=== PATIENT | female | born 1995 | race African-American/Black ===

== ENCOUNTER 2017-09-16 06:14 | Emergency (ER) | payer SELFPAY ==
[2017-09-16 06:37] LABS: URINE HCG POC HCG NEGATIVE (Negative)
[2017-09-16 06:40] LABS: BILIRUBIN,URINE SMALL (NEG); CLARITY,URINE CLEAR; COLOR,URINE AMBER; GLUCOSE,URINE NEGATIVE (NEG); NITRITE,URINE NEGATIVE (NEG); PROTEIN,URINE 30 mg/dL (NEG-TRACE)
[2017-09-16 06:50] LABS: ADD MAN DIFF? NO; BACTERIA,URINE FEW /HPF (0-FEW); RBC,URINE 0 /HPF (0-2); SQUAMOUS EPITHELIAL CELL,UR MOD /LPF
[2017-09-16 06:52] LABS: BASO % 1 % (0-3); EOS % 1 % (0-3); HEMOGLOBIN 13.7 g/dL (12.0-15.5); LYMPH # 0.9 x10^3/uL (1.0-4.8); LYMPH % 14 % (24-48); MEAN CORPUSCULAR HEMOGLOBIN 30 pg (25-35); MEAN CORPUSCULAR HGB CONC 34 g/dL (31-37); MEAN CORPUSCULAR VOLUME 88 fL (79-100); MONO # 0.4 x10^3/uL (0.0-1.1); MONO % 6 % (0-9); NEUT # 5.4 x10^3uL (1.8-7.7); NEUT % 79 % (31-73); PLATELET COUNT 301 x10^3/uL (140-400); RED BLOOD COUNT 4.57 x10^6/uL (3.50-5.40); RED CELL DISTRIBUTION WIDTH 12.4 % (11.5-14.5); WHITE BLOOD COUNT 6.8 x10^3/uL (4.0-11.0)
[2017-09-16 07:07] LABS: ANION GAP 14 (6-14); BLOOD UREA NITROGEN 15 mg/dL (7-20); BUN/CREATININE RATIO 15 (6-20); CALCIUM 10.3 mg/dL (8.5-10.1); CARBON DIOXIDE 23 mmol/L (21-32); CHLORIDE 102 mmol/L (98-107); GFR 85.5; GLUCOSE 117 mg/dL (70-99); POTASSIUM 3.3 mmol/L (3.5-5.1); SODIUM 139 mmol/L (136-145)
[2017-09-16 07:12] LABS: ALBUMIN/GLOBULIN RATIO 1.3 (1.0-1.7); ALK PHOS 69 U/L (46-116); ALT (SGPT) 23 U/L (14-59); AST (SGOT) 17 U/L (15-37); TOTAL BILIRUBIN 0.9 mg/dL (0.2-1.0); TOTAL PROTEIN 8.9 g/dL (6.4-8.2)
[2017-09-16] MEDS: ONDANSETRON ODT 4 MG TAB.RAPDIS. PO (07:19)
[2017-09-16] MEDS: IV NORMAL SALINE 1000ML BAG 1,000 ML IV (07:19)
[2017-09-16] MEDS: KETOROLAC 30 MG/ML INJ. IV (07:19)
== END 2017-09-16 07:50 | disposition home or self-care (01) ==
LOC: ER 06:14
DX: R11.2 Nausea with vomiting, unspecified (principal); R10.2 Pelvic and perineal pain
CPT/HCPCS: 36415; 80053; 81001; 81025; 85025; 96361; 96374; 99284; J1885; J7030; Q0162

== ENCOUNTER 2017-09-20 08:32 | Emergency (ER) | payer SELFPAY ==
[2017-09-20 08:52] LABS: URINE HCG POC HCG NEGATIVE (Negative)
[2017-09-20] MEDS: IOHEXOL 300 MG/ML 100ML VIAL. IV (09:00)
[2017-09-20] MEDS ORDERED: CONTRAST GIVEN. MC (09:00)
[2017-09-20] MEDS: IV NORMAL SALINE 1000ML BAG 1,000 ML IV (09:10)
[2017-09-20] MEDS: ONDANSETRON PF 4 MG/2 ML VIAL. IV (09:12)
[2017-09-20] MEDS: fentaNYL PF VIAL 100 MCG/2 ML VIAL IV (09:12)
[2017-09-20 09:14] LABS: ADD MAN DIFF? NO
[2017-09-20 09:32] LABS: ALBUMIN 4.7 g/dL (3.4-5.0); ALBUMIN/GLOBULIN RATIO 1.2 (1.0-1.7); ALK PHOS 76 U/L (46-116); ALT (SGPT) 36 U/L (14-59); ANION GAP 15 (6-14); AST (SGOT) 18 U/L (15-37); BLOOD UREA NITROGEN 15 mg/dL (7-20); BUN/CREATININE RATIO 15 (6-20); CALCIUM 9.9 mg/dL (8.5-10.1); CARBON DIOXIDE 25 mmol/L (21-32); CHLORIDE 96 mmol/L (98-107); CREATINE KINASE 63 U/L (26-192); DIRECT BILIRUBIN 0.4 mg/dL (0.0-0.2); GFR 85.5; GLUCOSE 91 mg/dL (70-99); LIPASE 99 U/L (73-393); SODIUM 136 mmol/L (136-145); TOTAL BILIRUBIN 1.4 mg/dL (0.2-1.0); TOTAL PROTEIN 8.6 g/dL (6.4-8.2)
[2017-09-20 09:36] LABS: TROPONINI < 0.017 ng/mL (0.000-0.055)
[2017-09-20 09:36] LABS: AMPHETAMINE/METHAMPHETAMINE NEG (NEG); BARBITURATES NEG (NEG); BENZODIAZEPINES NEG (NEG); CANNABINOIDS POS (NEG); COCAINE NEG (NEG); ETHANOL, URINE NEG (NEG); METHADONE NEG (NEG); OPIATES NEG (NEG); PHENCYCLIDINE NEG (NEG)
[2017-09-20 09:38] LABS: BACTERIA,URINE 0 /HPF (0-FEW); BILIRUBIN,URINE SMALL (NEG); CLARITY,URINE CLOUDY; COLOR,URINE AMBER; GLUCOSE,URINE NEGATIVE (NEG); NITRITE,URINE NEGATIVE (NEG); PH,URINE 6.5; PROTEIN,URINE 30 mg/dL (NEG-TRACE); RBC,URINE 0 /HPF (0-2); SQUAMOUS EPITHELIAL CELL,UR MANY /LPF; WBC,URINE 0 /HPF (0-4)
[2017-09-20 10:31] LABS: BASO # 0.1 x10^3/uL (0.0-0.2); BASO % 1 % (0-3); EOS # 0.2 x10^3/uL (0.0-0.7); EOS % 2 % (0-3); HEMATOCRIT 42.6 % (36.0-47.0); HEMOGLOBIN 14.8 g/dL (12.0-15.5); LYMPH % 26 % (24-48); MEAN CORPUSCULAR HEMOGLOBIN 30 pg (25-35); MEAN CORPUSCULAR HGB CONC 35 g/dL (31-37); MEAN CORPUSCULAR VOLUME 87 fL (79-100); MONO # 0.6 x10^3/uL (0.0-1.1); MONO % 8 % (0-9); NEUT # 4.8 x10^3uL (1.8-7.7); NEUT % 63 % (31-73); PLATELET COUNT 364 x10^3/uL (140-400); RED BLOOD COUNT 4.92 x10^6/uL (3.50-5.40); WHITE BLOOD COUNT 7.6 x10^3/uL (4.0-11.0)
[2017-09-20] MEDS: POTASSIUM CHLORIDE 20 MEQ TABLET.ER. PO (10:50)
== END 2017-09-20 12:12 | disposition home or self-care (01) ==
LOC: ER 12:12
DX: R10.30 Lower abdominal pain, unspecified (principal); R11.2 Nausea with vomiting, unspecified; R07.89 Other chest pain
CPT/HCPCS: 36415; 71046; 74177; 80053; 80076; 80307; 81001; 81025; 82550; 83690; 84484; 85025; 93005; 96361; 96374; 96375; 99285-25; J2405; J3010; J7030; Q9967

== ENCOUNTER 2017-10-19 13:00 | Emergency (ER) | payer SELFPAY ==
[~2017-10-19] VITALS: Ht 167.6 cm; Wt 72.6 kg
[~2017-10-19 13:00] MED LIST: ONDA4TAB10 PO; ONDA4TAB10 SL; TRAM-48 PO
[2017-10-19] MEDS ORDERED: IV NORMAL SALINE 1000ML BAG 1,000 ML IV ONE (13:45)
[2017-10-19] MEDS ORDERED: ONDANSETRON PF 4 MG/2 ML VIAL. IV ONE (13:45)
[2017-10-19 13:57] LABS: BASO % 0 % (0-3); EOS % 0 % (0-3); HEMATOCRIT 41.1 % (36.0-47.0); HEMOGLOBIN 13.8 g/dL (12.0-15.5); LYMPH % 14 % (24-48); MEAN CORPUSCULAR HEMOGLOBIN 29 pg (25-35); MEAN CORPUSCULAR HGB CONC 34 g/dL (31-37); MEAN CORPUSCULAR VOLUME 87 fL (79-100); MONO # 0.6 x10^3/uL (0.0-1.1); MONO % 8 % (0-9); NEUT # 5.8 x10^3uL (1.8-7.7); NEUT % 78 % (31-73); PLATELET COUNT 396 x10^3/uL (140-400); RED BLOOD COUNT 4.71 x10^6/uL (3.50-5.40); RED CELL DISTRIBUTION WIDTH 12.2 % (11.5-14.5); WHITE BLOOD COUNT 7.5 x10^3/uL (4.0-11.0)
--- NOTE | 2017-10-19 14:00 | PHYS DOC ---
Past Medical History Past Medical History: No Pertinent History Past Surgical History: No Surgical History Alcohol Use: Occasionally Drug Use: None Adult General Chief Complaint Chief Complaint: ABDOMINAL PAIN HPI HPI Patient is a 21 year old -[place] female who presents to the emergency room today with complaints of lower abdominal cramping and constipation following her last menstrual period which was October 15, 2017 through September. Patient also complains of tenderness in her chest and a sharp pain in her chest with deep breaths. She states that her last bowel movement was approximately 4 days ago. Currently, she reports her pain as 8 out of 10 on the pain scale. She states that nothing has helped to make her pain better or worse. Patient states she is not currently active sexually. She has had 5 episodes of nausea and vomiting over the last 24 hours. She denies any fever, urinary frequency, hematuria, irregular vaginal discharge, dysuria, or diarrhea. Review of Systems Review of Systems Constitutional: Denies fever or chills [] HENT: Denies nasal congestion or sore throat [] Respiratory: Denies cough reports intermittent shortness of breath with episodes of chest pain[] Cardiovascular: Reports substernal chest pain that increases with palpation and deep breathing GI: Denies bloody stools or diarrhea ; reports lower abdominal pain and 5 episodes of nausea/ vomiting in the last 24 hours. : Denies increased urinary frequency, dysuria or hematuria; denies regular vaginal discharge.[] Musculoskeletal: Denies back pain or joint pain [] Integument: Denies rash or skin lesions [] Neurologic: Denies headache, focal weakness or sensory changes [] Current Medications Current Medications Current Medications Medications (Trade) Dose Ordered Sig/Michael Start Time Stop Time Status Last Admin Dose Admin Azithromycin (Zithromax) 1,000 mg 1X ONCE 10/19/17 16:00 10/19/17 16:01 DC 10/19/17 16:00 1,000 MG Ceftriaxone Sodium (Rocephin Im) 250 mg STK-MED ONCE 10/19/17 15:56 10/19/17 15:57 DC Ketorolac Tromethamine (Toradol 15mg Vial) 15 mg 1X ONCE 10/19/17 14:45 10/19/17 14:54 DC 10/19/17 15:15 15 MG Morphine Sulfate (Morphine Sulfate) 4 mg 1X ONCE 10/19/17 14:15 10/19/17 14:17 DC 10/19/17 15:15 4 MG Ondansetron HCl (Zofran) 4 mg 1X ONCE 10/19/17 13:45 10/19/17 13:46 DC 10/19/17 13:40 4 MG Potassium Chloride (Klor-Con) 60 meq 1X ONCE 10/19/17 14:45 10/19/17 14:54 DC 10/19/17 15:28 60 MEQ Sodium Chloride 1,000 ml @ 1,000 mls/hr 1X ONCE 10/19/17 13:45 10/19/17 14:44 DC 10/19/17 13:40 1,000 MLS/HR Allergies Allergies Allergies Coded Allergies Type Severity Reaction Last Updated Verified No Known Drug Allergies 09/16/17 No Physical Exam Physical Exam Constitutional: Well developed, well nourished, no acute distress, non-toxic appearance. [] HENT: Normocephalic, atraumatic, bilateral external ears normal, oropharynx moist, no oral exudates, nose normal. [] Eyes: PERRLA, conjunctiva normal, no discharge. [] Cardiovascular:Heart rate regular rhythm, no murmur [] Lungs & Thorax: Bilateral breath sounds clear to auscultation; patient reports tenderness to palpation of chest wall[] Abdomen: Bowel sounds normal, soft, no masses, no pulsatile masses; bilateral lower abdominal tenderness to palpation Pelvic Exam: Farm Assistant present RN External Genitalia: Normal Skin Speculum: Normal vaginal mucosa, white vaginal discharge present, normal cervical discharge Bimanual: No adnexal masses, L adnexal tenderness, CMT Skin: Warm, dry, no erythema, no rash. [] Extremities: no cyanosis, ROM intact, no edema. [] Neurologic: Alert and oriented X 3, normal motor function, normal sensory function, no focal deficits noted. [] Psychologic: Affect normal, judgement normal, mood normal. [] Current Patient Data Vital Signs Vital Signs Date Time Temp Pulse Resp B/P (MAP) Pulse Ox O2 Delivery O2 Flow Rate FiO2 10/19/17 16:00 60 16 147/80 (102) 98 Room Air 10/19/17 13:05 98.7 98.7 Lab Values Laboratory Tests Test 10/19/17 13:20 10/19/17 13:25 10/19/17 13:28 White Blood Count 7.5 x10^3/uL (4.0-11.0) Red Blood Count 4.71 x10^6/uL (3.50-5.40) Hemoglobin 13.8 g/dL (12.0-15.5) Hematocrit 41.1 % (36.0-47.0) Mean Corpuscular Volume 87 fL (79-100) Mean Corpuscular Hemoglobin 29 pg (25-35) Mean Corpuscular Hemoglobin Concent 34 g/dL (31-37) Red Cell Distribution Width 12.2 % (11.5-14.5) Platelet Count 396 x10^3/uL (140-400) Neutrophils (%) (Auto) 78 % (31-73) H Lymphocytes (%) (Auto) 14 % (24-48) L Monocytes (%) (Auto) 8 % (0-9) Eosinophils (%) (Auto) 0 % (0-3) Basophils (%) (Auto) 0 % (0-3) Neutrophils # (Auto) 5.8 x10^3uL (1.8-7.7) Lymphocytes # (Auto) 1.0 x10^3/uL (1.0-4.8) Monocytes # (Auto) 0.6 x10^3/uL (0.0-1.1) Eosinophils # (Auto) 0.0 x10^3/uL (0.0-0.7) Basophils # (Auto) 0.0 x10^3/uL (0.0-0.2) Sodium Level 134 mmol/L (136-145) L Potassium Level 2.8 mmol/L (3.5-5.1) *L Chloride Level 97 mmol/L (98-107) L Carbon Dioxide Level 28 mmol/L (21-32) Anion Gap 9 (6-14) Blood Urea Nitrogen 16 mg/dL (7-20) Creatinine 1.0 mg/dL (0.6-1.0) Estimated GFR (Cockcroft-Gault) 85.5 BUN/Creatinine Ratio 16 (6-20) Glucose Level 98 mg/dL (70-99) Calcium Level 9.7 mg/dL (8.5-10.1) Total Bilirubin 0.8 mg/dL (0.2-1.0) Aspartate Amino Transferase (AST) 15 U/L (15-37) Alanine Aminotransferase (ALT) 21 U/L (14-59) Alkaline Phosphatase 74 U/L (46-116) Total Protein 9.0 g/dL (6.4-8.2) H Albumin 4.7 g/dL (3.4-5.0) Albumin/Globulin Ratio 1.1 (1.0-1.7) POC Urine HCG, Qualitative Hcg negative (Negative) Urine Collection Type Unknown Urine Color Renee Urine Clarity Turbid Urine pH 6.0 Urine Specific [place] >=1.030 Urine Protein 100 mg/dL (NEG-TRACE) Urine Glucose (UA) Negative mg/dL (NEG) Urine Ketones (Stick) >=80 mg/dL (NEG) Urine Blood Negative (NEG) Urine Nitrite Negative (NEG) Urine Bilirubin Moderate (NEG) Urine Urobilinogen Dipstick 1.0 mg/dL (0.2 mg/dL) Urine Leukocyte Esterase Trace (NEG) Urine RBC 0 /HPF (0-2) Urine WBC Occ /HPF (0-4) Urine Squamous Epithelial Cells Few /LPF Urine Amorphous Sediment Present /HPF Urine Bacteria 0 /HPF (0-FEW) Urine Mucus Slight /LPF Laboratory Tests 10/19/17 13:20 Laboratory Tests 10/19/17 13:20 Microbiology 10/19/17 Wet Prep - Final, Complete EKG EKG [] Radiology/Procedures Radiology/Procedures IMAGING REPORT Signed PATIENT: YIN OH ACCOUNT: [id number] : 1995 LOCATION: ER AGE: 21 SEX: F EXAM STATUS: REG ER ORD. PHYSICIAN: GINGER STOVER APRN REASON: lower abd pain with L adnexal tenderness PROCEDURE: PELVIS W/TV Pelvic ultrasound History: Lower abdominal pain. Left adnexal tenderness Comparison: None. Technique: Transabdominal ultrasound was performed to evaluate the uterine fundus. Endovaginal imaging was performed to evaluate optimally the endometrial canal and lower uterine segment. TRANSABDOMINAL IMAGING Findings: The uterus measures 5.5 cm in length and is grossly unremarkable. Endometrium is not well seen with transabdominal imaging. Right ovary measures 3.3 x 1.9 x 2.0 cm and is unremarkable. The left ovary measures 2.6 x 1.7 x 1.7 cm and is unremarkable. No adnexal masses are identified. No significant free fluid is identified within the pelvis. Both ovaries demonstrate normal vascular flow upon Doppler interrogation and are without evidence of torsion. ENDOVAGINAL IMAGING Findings: The uterus measures 5.7 cm in length and is unremarkable. The endometrium measures 1 mm. Right ovary measures 3.9 x 2.3 x 2.1 cm and demonstrates small follicles. The left ovary measures 3.6 x 2.3 x 2.1 cm and is unremarkable. No adnexal masses are identified. No significant free fluid is identified within the pelvis. Impression: 1. Unremarkable pelvic ultrasound. Electronically signed by: Bobo Sky MD (10/19/2017 3:26 PM) [facility] [place] S[place] BY: BOBO SKY MD DATE: 10/19/17 1523 IMAGING REPORT Signed PATIENT: YIN OH ACCOUNT: [id number] : 1995 LOCATION: ER AGE: 21 SEX: F EXAM STATUS: REG ER ORD. PHYSICIAN: GINGER STOVER APRN REASON: chest pain,nausea and vomiting x 2 days. PROCEDURE: CHEST PA & LATERAL EXAM: Chest, 2 views. HISTORY: Chest pain. COMPARISON: 09/20/2017. FINDINGS: Frontal and lateral views of the chest are obtained. There is no infiltrate, pleural effusion or pneumothorax. The heart is normal in size. IMPRESSION: No acute pulmonary finding. Electronically signed by: Virgen Rowley MD (10/19/2017 2:06 PM) [facility] DICTATED and SIGNED BY: VIRGEN ROWLEY MD DATE: 10/19/17 1406 [] Course & Med Decision Making Course & Med Decision Making Pertinent Labs and Imaging studies reviewed. (See chart for details) Patient is a 21-year-old female who presents emergency room with complaints of lower abdominal pain for the last 4 days with nausea and vomiting, and chest pain. VSS, labs revealed low potassium 2.9 and sodium 134. Wet mount was positive for clue cells. US negative for any acute findings including torsion, ovarian mass, or KIKE. EKG was negative for any acute findings. Clinically pt presents as pelvic pain with bacterial vaginosis, and costochondritis. Pt is treated as such. Pt was given 60 meq of KCL PO in the department, 1 L NS, 4 mg zofran, 4 mg morphine, and 15 mg of toradol IV. Discussed findings with patient, will write prescriptions for naproxen, zofran, and flagyl.. Patient verbalized an understanding of home care, medications, follow-up, and return to ED instructions and was in agreement with the plan of care. Dragon Disclaimer Dragon Disclaimer This electronic medical record was generated, in whole or in part, using a voice recognition dictation system. Departure Departure Impression: Primary Impression: Bacterial vaginosis Additional Impressions: Pelvic pain Nausea & vomiting Costochondritis, acute Disposition: HOME, SELF-CARE Condition: IMPROVED Referrals: NO PCP (PCP) Patient Instructions: Bacterial Vaginosis, [id number], Costochondritis-Brief , Nausea and Vomiting, [id number] Additional Instructions: Avoid having intercourse until the results of gonorrhea and chlamydia testing are available, these results would not be available for 48 hours. If one or both of these tests is positive, you need to refrain from intercourse for approximately 2 weeks following the treatment of any current partners. Fill your prescriptions and use them as directed. Drink only clear fluids for the next 24 hours then you may advance your diet to include bland foods such as bananas, rice, applesauce, and dry toast. Follow-up with your primary care doctor in the next 1-2 days. Return to the ER if symptoms worsen. Scripts Potassium Chloride (POTASSIUM CHLORIDE) 20 Meq Tablet.er 20 MEQ PO BID for 7 Days, #14 TAB.SR 0 Refills Prov: GINGER STOVER APRN 10/19/17 Naproxen (NAPROXEN) 500 Mg Tablet 500 MG PO BID PRN for PAIN for 10 Days, #20 TAB 0 Refills Prov: GINGER STOVER APRN 10/19/17 Metronidazole (FLAGYL) 500 Mg Tablet 1 TAB PO BID, #14 TAB 0 Refills Prov: GINGER STOVER APRN 10/19/17 Ondansetron (ONDANSETRON ODT) 4 Mg Tab.rapdis 1 TAB PO PRN Q6-8HRS, #12 TAB 0 Refills Prov: GINGER STOVER APRN 10/19/17 Problem Qualifiers Additional Impressions: Nausea & vomiting Vomiting type: unspecified Vomiting Intractability: non-intractable Qualified Codes: R11.2 - Nausea with vomiting, unspecified GINGER STOVER PREVENTION SPECIALIST Oct 19, 2017 14:00
--- NOTE | 2017-10-19 14:09 | RAD ---
EXAM: Chest, 2 views. HISTORY: Chest pain. COMPARISON: 09/20/2017. FINDINGS: Frontal and lateral views of the chest are obtained. There is no infiltrate, pleural effusion or pneumothorax. The heart is normal in size. IMPRESSION: No acute pulmonary finding. Electronically signed by: Virgen Jaquez MD (10/19/2017 2:06 PM) [facility]
[2017-10-19] MEDS ORDERED: MORPHINE SULFATE 4 MG/ML VIAL. IV ONE (14:15)
[2017-10-19 14:17] LABS: ALBUMIN 4.7 g/dL (3.4-5.0); ALBUMIN/GLOBULIN RATIO 1.1 (1.0-1.7); CALCIUM 9.7 mg/dL (8.5-10.1); GFR 85.5; TOTAL BILIRUBIN 0.8 mg/dL (0.2-1.0)
[2017-10-19 14:24] LABS: POTASSIUM 2.8 mmol/L (3.5-5.1)
[2017-10-19 14:40] LABS: BILIRUBIN,URINE MODERATE (NEG); CLARITY,URINE TURBID; COLOR,URINE AMBER; NITRITE,URINE NEGATIVE (NEG); PROTEIN,URINE 100 mg/dL (NEG-TRACE)
[2017-10-19] MEDS ORDERED: KETOROLAC 15 MG/ML VIAL. IV ONE (14:45)
[2017-10-19] MEDS ORDERED: POTASSIUM CHLORIDE 20 MEQ TABLET.ER. PO ONE (14:45)
[2017-10-19 14:50] LABS: AMORPHOUS SEDIMENT,UR PRESENT /HPF; BACTERIA,URINE 0 /HPF (0-FEW); RBC,URINE 0 /HPF (0-2); SQUAMOUS EPITHELIAL CELL,UR FEW /LPF; WBC,URINE OCC /HPF (0-4)
--- NOTE | 2017-10-19 15:29 | RAD ---
Pelvic ultrasound History: Lower abdominal pain. Left adnexal tenderness Comparison: None. Technique: Transabdominal ultrasound was performed to evaluate the uterine fundus. Endovaginal imaging was performed to evaluate optimally the endometrial canal and lower uterine segment. TRANSABDOMINAL IMAGING Findings: The uterus measures 5.5 cm in length and is grossly unremarkable. Endometrium is not well seen with transabdominal imaging. Right ovary measures 3.3 x 1.9 x 2.0 cm and is unremarkable. The left ovary measures 2.6 x 1.7 x 1.7 cm and is unremarkable. No adnexal masses are identified. No significant free fluid is identified within the pelvis. Both ovaries demonstrate normal vascular flow upon Doppler interrogation and are without evidence of torsion. ENDOVAGINAL IMAGING Findings: The uterus measures 5.7 cm in length and is unremarkable. The endometrium measures 1 mm. Right ovary measures 3.9 x 2.3 x 2.1 cm and demonstrates small follicles. The left ovary measures 3.6 x 2.3 x 2.1 cm and is unremarkable. No adnexal masses are identified. No significant free fluid is identified within the pelvis. Impression: 1. Unremarkable pelvic ultrasound. Electronically signed by: Bobo Stewart MD (10/19/2017 3:26 PM) [facility] [place]
[2017-10-19] MEDS ORDERED: NAPR-514 PO (15:42)
[2017-10-19] MEDS ORDERED: METR500T PO (15:42)
[2017-10-19] MEDS ORDERED: ONDA4TAB12 PO (15:42)
[2017-10-19] MEDS ORDERED: cefTRIAXone IM 250 MG VIAL IM ONE ×2 (15:56→16:00)
[2017-10-19 16:00] VITALS: BP 147/80
[2017-10-19] MEDS ORDERED: AZITHROMYCIN 250 MG TABLET. PO ONE (16:00)
[2017-10-19] MEDS ORDERED: POTA20TA82 PO (18:24)
--- NOTE | 2017-10-20 11:06 | EKG ---
[facility] [address] [place] [address] Test Date: 2017-10-19 Test Time: 14:01:23 Pat Name: YIN OH Department: Room: Gender: F Water Treatment Operator: DAYNA : 1995 Requested By: GINGER STOVER Order Number: [id number] Reading MD: Stephan Remy MD Measurements Intervals [place] Rate: 63 P: 49 UT: 160 QRS: 72 QRSD: 88 T: 67 QT: 458 QTc: 472 Interpretive Statements SINUS RHYTHM ATRIAL PREMATURE COMPLEX(ES) PROLONGED QT NON SPECIFIC ST-T ABNORMALITY (ELEVATION) Electronically Signed On 10-22-2017 9:11:46 CDT by Stephan Remy MD
[2017-10-21 15:26] LABS: GC PROBE Negative (Negative)
== END 2017-10-19 16:38 | disposition home or self-care (01) ==
LOC: ER 13:00
DX: N76.0 Acute vaginitis (principal); B96.89 Other specified bacterial agents as the cause of diseases classified elsewhere; R10.2 Pelvic and perineal pain; R11.2 Nausea with vomiting, unspecified; M94.0 Chondrocostal junction syndrome [Tietze]; R07.89 Other chest pain; R06.02 Shortness of breath; K59.00 Constipation, unspecified
CPT/HCPCS: 36415; 71046; 76830; 76856; 80053; 81001; 81025; 85025; 87086; 87491; 87591; 93005; 96361; 96372; 96374; 96375; 99285; J0696; J1885; J2270; J2405; J7030; Q0111; Q0144

== ENCOUNTER 2018-06-17 18:09 | Emergency (ER) | payer SELFPAY ==
[~2018-06-17] VITALS: Ht 168.9 cm; Wt 64.4 kg
[~2018-06-17 18:09] MED LIST changes: +METR500T PO; +NAPR-514 PO; +ONDA4TAB12 PO; +POTA20TA82 PO
[2018-06-17] MEDS ORDERED: KETOROLAC 60 MG/2 ML VIAL. IM ONE (19:00)
--- NOTE | 2018-06-17 19:02 | PHYS DOC ---
Past Medical History Past Medical History: No Pertinent History (KAREEM MAC APRN) Past Surgical History: No Surgical History (KAREEM MAC APRN) Alcohol Use: Occasionally Drug Use: None (KAREEM MAC APRN) Adult General Chief Complaint Chief Complaint: PELVIC PAIN HPI HPI Patient is a 22 year old female presents for evaluation of left lower pelvic pain for 3 days. She reports some diarrhea. She denies vaginal or urinary symptoms. Denies nausea, vomiting or fevers. Last menstrual cycle was at the end of April. She denies possibility of . (KAREEM MAC APRN) Review of Systems Review of Systems Constitutional: Denies fever or chills [] Eyes: Denies change in visual acuity, redness, or eye pain [] HENT: Denies nasal congestion or sore throat [] Respiratory: Denies cough or shortness of breath [] Cardiovascular: No additional information not addressed in HPI [] GI: REPORTS abdominal pain DENIES nausea, vomiting, bloody stools [] : Denies dysuria or hematuria [] Musculoskeletal: Denies back pain or joint pain [] Integument: Denies rash or skin lesions [] Neurologic: Denies headache, focal weakness or sensory changes [] Endocrine: Denies polyuria or polydipsia [] All other systems were reviewed and found to be within normal limits, except as documented in this note. (KAREEM MAC APRN) Current Medications Current Medications Current Medications Medications (Trade) Dose Ordered Sig/Michael Start Time Stop Time Status Last Admin Dose Admin Azithromycin (Zithromax) 1,000 mg 1X ONCE 06/17/18 19:45 06/17/18 19:46 DC 06/17/18 20:56 1,000 MG Ketorolac Tromethamine (Toradol Im) 30 mg 1X ONCE 06/17/18 19:00 06/17/18 19:02 DC 06/17/18 19:26 30 MG (RAMILA DUDLEY MD) Allergies Allergies Allergies Coded Allergies Type Severity Reaction Last Updated Verified No Known Drug Allergies 09/16/17 No (RAMILA DUDLEY MD) Physical Exam Physical Exam Constitutional: Well developed, well nourished, no acute distress, non-toxic appearance. [] Neck: Normal range of motion, no tenderness, supple, no stridor. [] Cardiovascular:Heart rate regular rhythm, no murmur [] Lungs & Thorax: Bilateral breath sounds clear to auscultation [] Abdomen:LEFT LOWER ABD TTP [] Skin: Warm, dry, no erythema, no rash. [] Back: No tenderness, no CVA tenderness. [] : LARGE AMT THICK WHITE DISCHARGE, ERYTHEMA TO CERVIX, LEFT ADNEXAL TTP Extremities: No tenderness, no cyanosis, no clubbing, ROM intact, no edema. [] Neurologic: Alert and oriented X 3, normal motor function, normal sensory function, no focal deficits noted. [] Psychologic: Affect normal, judgement normal, mood normal. [] (KAREEM MAC APRN) Current Patient Data Vital Signs Vital Signs Date Time Temp Pulse Resp B/P (MAP) Pulse Ox O2 Delivery O2 Flow Rate FiO2 06/17/18 21:00 68 16 139/86 (103) 100 Room Air 06/17/18 18:44 98.4 98.4 (RAMILA DUDLEY MD) Lab Values Laboratory Tests Test 06/17/18 18:45 06/17/18 18:59 06/17/18 19:31 Urine Collection Type Unknown Urine Color Renee Urine Clarity Cloudy Urine pH 5.5 Urine Specific [place] >=1.030 Urine Protein Negative mg/dL (NEG-TRACE) Urine Glucose (UA) Negative mg/dL (NEG) Urine Ketones (Stick) >=80 mg/dL (NEG) Urine Blood Trace (NEG) Urine Nitrite Negative (NEG) Urine Bilirubin Small (NEG) Urine Urobilinogen Dipstick 0.2 mg/dL (0.2 mg/dL) Urine Leukocyte Esterase Moderate (NEG) Urine RBC 1-2 /HPF (0-2) Urine WBC 20-40 /HPF (0-4) Urine Squamous Epithelial Cells Many /LPF Urine Bacteria Moderate /HPF (0-FEW) Urine Mucus Marked /LPF POC Urine HCG, Qualitative Hcg negative (Negative) Chlamydia DNA Probe Negative (Negative) Neisseria gonorrhoeae DNA Probe Negative (Negative) Microbiology 06/17/18 Wet Prep - Final, Complete 06/17/18 Urine Culture - Final, Complete 06/17/18 Urine Culture Result 1 (SANIA) - Final, Complete (RAMILA DUDLEY MD) Lab Values Microbiology 06/17/18 Wet Prep - Final, Complete (KAREEM MAC APRN) EKG EKG [] (KAREEM MAC APRN) Radiology/Procedures Radiology/Procedures [] (KAREEM MAC APRN) Impressions: transvaginal ultrasound History: Left pelvic/adnexal pain Comparison: October 19, 2017 Findings: Multiple transvaginal sonographic images of pelvis are submitted. Uterus measured 6.2 x 4.3 x 2.4 centers. Endometrium measured about 0.8 cm. Right ovary measured 3 x 1.6 x 1.6 cm. Left ovary measured 3.2 x 2 x 1.7 cm. There is minimal free fluid in the pelvis. There is nabothian cyst of the cervix. There are several follicles of the ovaries bilaterally. There is normal low resistance vascularity of the ovaries bilaterally. Impression: 1. There are several follicles of the ovaries bilaterally. There is minimal nonspecific free fluid. Electronically signed by: Rudy Singh MD (06/17/2018 8:34 PM) [facility] (KAREEM MAC APRN) Course & Med Decision Making Course & Med Decision Making Pertinent Labs and Imaging studies reviewed. (See chart for details) [Vital signs stable, patient is treated for gonorrhea and chlamydia today in the emergency room, cultures are pending. Prescription for Macrobid for urinary tract infection. Ultrasound negative. Recommend follow-up with primary care doctor, referral provided with discharge instructions.] (KAREEM MAC APRN) Course & Med Decision Making Staff Physician Addendum: I was working in the ER during the course of this patient's visit. I was available for consultation as needed, but I was not directly involved in the care of this patient. (RAMILA DUDLEY MD) Dragon Disclaimer Dragon Disclaimer This electronic medical record was generated, in whole or in part, using a voice recognition dictation system. (KAREEM MAC APRN) Departure Departure Impression: Primary Impression: Pelvic pain Additional Impressions: Cervicitis Urinary tract infection Disposition: 01 HOME, SELF-CARE Condition: STABLE Referrals: NO PCP (PCP) Patient Instructions: Cervicitis, [id number], Urinary Tract Infection Scripts Nitrofurantoin Monohyd/M-Cryst (MACROBID 100 MG CAPSULE) 100 Mg Capsule 1 CAP PO BID, #10 CAP Prov: KAREEM MAC FOUNDRY MOLDER 06/17/18 Problem Qualifiers Additional Impressions: Urinary tract infection Urinary tract infection type: acute cystitis Hematuria presence: without hematuria Qualified Codes: N30.00 - Acute cystitis without hematuria KAREEM MAC FOUNDRY MOLDER Jun 17, 2018 19:02 RAMILA DUDLEY MD Jun 23, 2018 08:07
[2018-06-17 19:05] LABS: BILIRUBIN,URINE SMALL (NEG); CLARITY,URINE CLOUDY; COLOR,URINE AMBER; NITRITE,URINE NEGATIVE (NEG); PH,URINE 5.5; PROTEIN,URINE NEGATIVE (NEG-TRACE); UROBILINOGEN,URINE 0.2 mg/dL (0.2 mg/dL)
[2018-06-17 19:16] LABS: SQUAMOUS EPITHELIAL CELL,UR MANY /LPF
[2018-06-17 19:17] LABS: BACTERIA,URINE MODERATE /HPF (0-FEW); WBC,URINE 20-40 /HPF (0-4)
[2018-06-17] MEDS ORDERED: AZITHROMYCIN 250 MG TABLET. PO ONE (19:45)
--- NOTE | 2018-06-17 20:37 | RAD ---
Transvaginal ultrasound History: Left pelvic/adnexal pain Comparison: October 19, 2017 Findings: Multiple transvaginal sonographic images of pelvis are submitted. Uterus measured 6.2 x 4.3 x 2.4 centers. Endometrium measured about 0.8 cm. Right ovary measured 3 x 1.6 x 1.6 cm. Left ovary measured 3.2 x 2 x 1.7 cm. There is minimal free fluid in the pelvis. There is nabothian cyst of the cervix. There are several follicles of the ovaries bilaterally. There is normal low resistance vascularity of the ovaries bilaterally. Impression: 1. There are several follicles of the ovaries bilaterally. There is minimal nonspecific free fluid. Electronically signed by: Rudy Singh MD (06/17/2018 8:34 PM) [facility]
[2018-06-17 21:00] VITALS: BP 139/86
[2018-06-17] MEDS ORDERED: NITR100C62 PO (21:03)
[2018-06-19 13:17] LABS: GC PROBE Negative (Negative)
== END 2018-06-17 21:16 | disposition home or self-care (01) ==
LOC: ER 18:09
DX: N30.00 Acute cystitis without hematuria (principal); N72 Inflammatory disease of cervix uteri; K59.00 Constipation, unspecified
CPT/HCPCS: 76830; 81001; 81025; 87086; 87491; 87591; 96372; 99285; J1885; Q0111; Q0144